=== PATIENT | female | born 1995 | race Caucasian/White ===

== ENCOUNTER 2017-11-01 10:11 | Emergency (ER) | payer MEDICAID, OTHER ==
[2017-11-01 11:13] LABS: ADD MAN DIFF? NO
[2017-11-01] MEDS: morphine 4 MG/ML VIAL IV (11:13)
[2017-11-01] MEDS: SOD CHLORIDE 0.9% 1,000 ML IV (11:13)
[2017-11-01] MEDS: ONDANSETRON 4 MG INJ IV (11:13)
[2017-11-01 11:34] LABS: ADD UMIC NO; ALANINE AMINOTRANSFERASE 25 IU/L (13-69); ALBUMIN 4.4 g/dl (3.3-4.9); ALBUMIN/GLOBULIN RATIO 1.33; ALKALINE PHOSPHATASE 81 IU/L (42-121); ANION GAP 15 (8-16); ASPARTATE AMINO TRANSFERASE 27 IU/L (15-46); BLOOD UREA NITROGEN 8 mg/dl (7-20); CALCIUM 9.3 mg/dl (8.4-10.2); CARBON DIOXIDE 26 mmol/L (21-31); CHLORIDE 103 mmol/L (97-110); CREATININE 0.62 mg/dl (0.44-1.00); GLUCOSE 92 mg/dl (70-220); POTASSIUM 4.2 mmol/L (3.5-5.1); SODIUM 140 mmol/L (135-144); TOTAL PROTEIN 7.7 g/dl (6.1-8.1); UR ASCORBIC ACID NEGATIVE (NEGATIVE); UR BILIRUBIN (Dip) NEGATIVE (NEGATIVE); UR BLOOD (Dip) NEGATIVE (NEGATIVE); UR CLARITY CLEAR (CLEAR); UR COLOR YELLOW (YELLOW); UR GLUCOSE (Dip) NEGATIVE (NEGATIVE); UR KETONES (Dip) NEGATIVE (NEGATIVE); UR LEUKOCYTE ESTERASE (Dip) NEGATIVE Leu/ul (NEGATIVE); UR NITRITE (Dip) NEGATIVE (NEGATIVE); UR SPECIFIC GRAVITY (Dip) 1.018 (1.003-1.030); UR TOTAL PROTEIN (Dip) NEGATIVE (NEGATIVE); UR UROBILINOGEN (Dip) 2+ mg/dL (NEGATIVE)
[2017-11-01 11:35] LABS: WHITE BLOOD COUNT 7.6 10^3/ul (4.8-10.8)
[2017-11-01 11:36] LABS: BASOPHIL # 0.1 10^3/ul (0.0-0.1); BASOPHILS % 1.3 % (0.0-2.0); EOSINOPHILS # 0.1 10^3/ul (0.0-0.5); EOSINOPHILS % 0.9 % (0.0-7.0); HEMATOCRIT 39.8 % (37.0-47.0); HEMOGLOBIN 12.8 g/dl (12.0-16.0); LYMPHOCYTES # 1.8 10^3/ul (0.8-2.9); MEAN CORPUSCULAR HEMOGLOBIN 27.2 pg (29.0-33.0); MEAN CORPUSCULAR HGB CONC 32.2 g/dl (32.0-37.0); MEAN CORPUSCULAR VOLUME 84.5 fl (82.0-101.0); MEAN PLATELET VOLUME 10.1 fl (7.4-10.4); MONOCYTE # 0.5 10^3/ul (0.3-0.9); NEUTROPHILS % 66.5 % (39.0-77.0); PLATELET COUNT 311 10^3/UL (140-415); RED BLOOD COUNT 4.71 10^6/ul (4.20-5.40); RED CELL DISTRIBUTION WIDTH 17.4 % (11.5-14.5)
[2017-11-01] MEDS: morphine 2 MG INJ IV (11:59)
[2017-11-01] MEDS: ONDANSETRON (ODT) 4 MG TAB ODT (11:59)
[2017-11-01] MEDS: SOD CHLORIDE 0.9% 100 ML (12:06)
[2017-11-01] MEDS: IOHEXOL 300MG/ML 150 ML BTL (12:06)
[2017-11-01] MEDS: IOHEXOL 350MG/ML 50 ML BTL (12:06)
== END 2017-11-01 13:19 | disposition home or self-care (01) ==
LOC: FTE 13:19
DX: H04.011 Acute dacryoadenitis, right lacrimal gland (principal)
CPT/HCPCS: 70480; 80053; 81003; 81025; 85025; 96374; 96375; 96376; 99285-25

== ENCOUNTER 2017-11-02 12:15 | Emergency (ER) | payer MEDICAID | END 2017-11-02 12:31 | disposition home or self-care (01) | LOC: E/R 12:15 | DX: Z76.0 Encounter for issue of repeat prescription (principal) | CPT/HCPCS: 99281; Z7502 ==